=== PATIENT | male | born 1995 | race Caucasian/White ===

== ENCOUNTER 2020-06-12 14:21 | Emergency (ER) | payer OTHER ==
[~2020-06-12] VITALS: Ht 188 cm; Wt 84.3 kg
[2020-06-12 14:38] VITALS: BP 130/71
== END 2020-06-12 14:47 | disposition home or self-care (01) ==
LOC: ED 14:36
DX: J02.9 Acute pharyngitis, unspecified (principal)
CPT/HCPCS: 99283